=== PATIENT | male | born 1980 | race Caucasian/White ===

== ENCOUNTER 2018-05-26 10:54 | Emergency (ER) | payer MEDICAID ==
[2018-05-26] MEDS ORDERED: KETOROLAC 15 MG/1 ML SDV IVP ONE (11:25)
[2018-05-26] MEDS ORDERED: LORazepam 2 MG/ML INJ IVP ONE (11:25)
[2018-05-26] MEDS ORDERED: HYDROmorphONE/DILAUDID 2 MG/ML INJ IVP ONE (11:26)
--- NOTE | 2018-05-26 12:01 | EDPHY ---
H & P Stated Complaint: pt says poss pulled muscle in low back, today severe pain bilat rad to LLE Time Seen by Provider: 05/26/18 11:19 HPI/ROS: CHIEF COMPLAINT: Low back pain HISTORY OF PRESENT ILLNESS: The patient presents the ED with complaints of severe low back pain that began last night. 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 The patient denies any acute numbness or weakness. The patient does report some radiation into his right gluteal area. He denies any bowel or bladder dysfunction. The patient does have a history of chronic cervical neck pain from a herniated disc. He did undergo a cervical disc injection approximately 6 weeks ago. The patient does take chronic pain medication. REVIEW OF SYSTEMS: A comprehensive 10 point review of systems is otherwise negative aside from elements mentioned in the history of present illness. Source: Patient - Medical/Surgical History Hx Asthma: No Hx Chronic Respiratory Disease: No Hx Diabetes: No Hx Cardiac Disease: No Hx Renal Disease: No Hx Cirrhosis: No Hx Alcoholism: No Hx HIV/AIDS: No Hx Splenectomy or Spleen Trauma: No Other PMH: chronic neck pain due to trauma, orif mouth/face - Social History Smoking Status: Current every day smoker - Physical Exam Exam: General Appearance: Alert, mild discomfort from pain Eyes: Pupils equal and round no pallor or injection ENT, Mouth: Mucous membranes moist Respiratory: There are no retractions, lungs are clear to auscultation Cardiovascular: Regular rate and rhythm Gastrointestinal: Abdomen is soft and nontender, no masses, bowel sounds normal Neurological: A&O, normal motor function, normal sensory exam, normal cranial nerves Skin: Warm and dry, no rashes Musculoskeletal: Tenderness to palpation throughout the lower lumbar paraspinal musculature. Extremities: symmetrical, full range of motion Psychiatric: Patient is oriented X 3, there is no agitation Constitutional: Initial Vital Signs Temperature (C) 36.5 C 05/26/18 11:00 Heart Rate 96 05/26/18 11:00 Respiratory Rate 18 05/26/18 11:00 Blood Pressure 122/87 H 05/26/18 11:00 O2 Sat (%) 96 05/26/18 11:00 O2 Delivery Mode Room Air O2 (L/minute) 2 Allergies/Adverse Reactions: trazodone Allergy (Verified 05/26/18 11:03) Home Medications: Medication Instructions Recorded Diazepam [Valium 10 MG (*)] 10 mg PO BID PRN #20 tab 05/26/18 Lidocaine [Lidoderm] 1 each TP AD PRN #15 adh..patch 05/26/18 methylPREDNISolone [Medrol Dose 1 each PO AD #1 ea 05/26/18 Minesh] Medical Decision Making ED Course/Re-evaluation: The patient had an IV established. He presents to the ED with acute low back pain. He has no detectable weakness in his lower extremities. He has no clinical evidence of cauda equina type syndrome. The patient was treated with a lidocaine patch, IV Solu-Medrol, Ativan and a narcotic pain medications. The patient had serial examinations in the ED over a 2.5 hr period. I re-evaluated the patient at 2:00 p.m. And he is feeling better. The patient will be discharged home with a Solu-Medrol Dosepak, lidocaine patches and prescriptions for a muscle relaxant. The patient does have a advertising specialist that he is seen in the past for his cervical radiculopathy. The patient will be discharged home with customary aftercare instructions and return precautions. Differential Diagnosis: Differential diagnosis considered includes myofascial strain, lumbar disc herniation, sciatica - Data Points Medications Given: Discontinued Medications Hydromorphone HCl (Dilaudid) 1 mg IVP EDNOW ONE Stop: 05/26/18 11:27 Last Admin: 05/26/18 11:43 Dose: 1 mg Ketorolac Tromethamine (Toradol) 15 mg IVP EDNOW ONE Stop: 05/26/18 11:26 Last Admin: 05/26/18 11:44 Dose: 15 mg Lorazepam (Ativan Injection) 1 mg IVP EDNOW ONE Stop: 05/26/18 11:26 Last Admin: 05/26/18 11:44 Dose: 1 mg Methylprednisolone Sodium Succinate (Solu-Medrol) 125 mg IVP EDNOW ONE Stop: 05/26/18 12:08 Last Admin: 05/26/18 12:20 Dose: 125 mg Miscellaneous Medication (Icy Hot Lidocaine/Menthol 4%/1% Patch) 1 patch TD EDNOW ONE Stop: 05/26/18 12:08 Last Admin: 05/26/18 12:20 Dose: 1 patch Departure - Departure Disposition: Home, Routine, Self-Care Clinical Impression: Low back pain, Sciatica Condition: Good Instructions: Low Back Strain (ED) Additional Instructions: 1. Please steroids as directed. 2. Valium as needed for muscle relaxation. 3. Lidocaine patches as prescribed. 4. Please return to the ED for markedly worsening pain, acute numbness or weakness, bowel or bladder dysfunction or other concerns. 5. Please follow up with your regular advertising specialist for any unimproved symptoms as you may be a candidate for a injection Referrals: Paulo Jensen MD [Primary Care Provider] - As per Instructions
[2018-05-26] MEDS ORDERED: LIDOCAINE 4%/MENTHOL 1% PATCH TD ONE (12:07)
[2018-05-26] MEDS ORDERED: methylPREDNISolone SOD SUCC 125 MG/2 ML VIAL IVP ONE (12:07)
[2018-05-26 14:27] VITALS: BP 107/68
[2018-05-26] MEDS ORDERED: PATCH REMOVAL 1 EA PATCH TD SCH (21:00)
== END 2018-05-26 14:41 | disposition home or self-care (01) ==
DX: M54.41 Lumbago with sciatica, right side (principal)
CPT/HCPCS: 96374; J1170; J1885; J2060; J2930